=== PATIENT | female | born 1950 ===

== ENCOUNTER → 2017-05-28 | Outpatient (CLI) | payer MEDICARE, MEDICAID ==
[~2017-05-28] MED LIST: ASPIRIN LO-DOSE81 MG PO; COZAAR100 MG PO; CPAP INH; GLUCOSAMINE &1 EAC1 PO; KLOR-CON M2020 MEQ PO; LASIX40 MG PO; LOPRESSOR25 MG PO; MULTI VITAMIN1 EACH PO; POMALYST4 MG PO; PRILOSEC20 MG PO; ULTRAM50 MG PO; VITAMIN B-122000 MC1 PO; VITAMIN D35000 UNI1 PO; ZOVIRAX400 MG PO
== END | disposition disaster alternative care site (69) ==
LOC: GPOC 05-19 10:00
DX: C90.00 Multiple myeloma not having achieved remission (principal); M25.852 Other specified joint disorders, left hip; M84.459D Pathological fracture, hip, unspecified, subsequent encounter for fracture with routine healing; E78.5 Hyperlipidemia, unspecified
CPT/HCPCS: A9552; J2001; J7030